=== PATIENT | female | born 1975 | race Caucasian/White ===

== ENCOUNTER 2019-12-04 13:54 | Outpatient (CLI) | payer OTHER, SELFPAY ==
--- NOTE | ~2019-12-04 | MM_ITS ---
EXAMINATION: MM screening [facility] BI w carla HISTORY: Screening mammogram TECHNIQUE: Craniocaudal and mediolateral oblique 3-D tomosynthesis images were obtained and synthetic 2-D images were generated. CAD analysis was submitted and interpreted. COMPARISON: 11/27/2018, 06/10/2017, 06/13/2016 BREAST PARENCHYMAL COMPOSITION: The breasts are heterogeneously dense, which may obscure small masses . FINDINGS: Again seen are multiple bilateral obscured breast masses with a waxing and waning appearanc e, consistent with cysts. Scattered benign-appearing calcifications are present. There is no evidence of suspicious mass, calcification, or architectural distortion to suggest malignancy in either breas t. There has been no suspicious interval change. IMPRESSION: 1. No mammographic evidence of malignancy. 2. Recommend routine screening mammography in one year. BI-RADS Category 2: Benign finding(s). Reviewed, dictated and finalized at location A.
== END 2019-12-04 13:55 | disposition home or self-care (01) ==
LOC: ANHIMG 14:02
PROVIDERS: Visit Provider Obstetrics & Gynecology
DX: Z12.31 Encounter for screening mammogram for malignant neoplasm of breast (principal)
CPT/HCPCS: 77063; 77067

== ENCOUNTER 2020-12-23 17:50 | Outpatient (CLI) | payer OTHER, SELFPAY ==
--- NOTE | ~2020-12-23 | MM_ITS ---
EXAMINATION: MM screening [facility] BI w carla HISTORY: Screening TECHNIQUE: Craniocaudal and mediolateral oblique 3-D tomosynthesis images were obtained and synthetic 2-D images were generated. CAD analysis was submitted and interpreted. COMPARISON: Comparison to multiple prior studies sequentially, with oldest reviewed study dated 12/03. BREAST PARENCHYMAL COMPOSITION: The breasts are heterogenously dense, which may obscure small masses. FINDINGS: There are multiple developing bilateral breast masses which are obscured by dense fibroglan dular tissue. There are scattered benign-appearing calcifications. No architectural distortion is rosangela ntified. IMPRESSION: 1. Developing bilateral breast masses, obscured by dense fibroglandular tissue. 2. Additional complete bilateral breast ultrasound is recommended. BI-RADS Category 0: Incomplete: Needs additional imaging evaluation. Reviewed, dictated and finalized at location A.
== END 2020-12-23 17:51 | disposition home or self-care (01) ==
LOC: ANHIMG 17:52
PROVIDERS: Visit Provider Obstetrics & Gynecology
DX: Z12.31 Encounter for screening mammogram for malignant neoplasm of breast (principal); R92.8 Other abnormal and inconclusive findings on diagnostic imaging of breast
CPT/HCPCS: 77063; 77067

== ENCOUNTER 2021-01-15 12:35 | Outpatient (CLI) | payer OTHER, SELFPAY ==
--- NOTE | ~2021-01-15 | US_ITS ---
EXAMINATION: US breast BI limited HISTORY: Bilateral breast masses on screening mammogram TECHNIQUE: Limited high-resolution ultrasound is performed in the upper outer quadrant of the breasts . FINDINGS: There are multiple similar appearing anechoic and hypoechoic masses in both breasts, consis tent with simple and complicated cysts. None demonstrate suspicious sonographic features. IMPRESSION: Multiple simple and complicated cysts of the breasts without suspicious sonographically detected mass . Routine screening mammography is recommended. BI-RADS Category 2: Benign finding(s). Reviewed, dictated and finalized at location A. IMPRESSION: Multiple simple and complicated cysts of the breasts without suspicious sonogra phically detected mass. Routine screening mammography is recommended. BI-RADS Category 2: Benign finding(s).
== END 2021-01-15 12:36 | disposition home or self-care (01) ==
LOC: ANHIMG 12:37
PROVIDERS: Visit Provider Obstetrics & Gynecology
DX: R92.8 Other abnormal and inconclusive findings on diagnostic imaging of breast (principal)
CPT/HCPCS: 76642

== ENCOUNTER 2022-01-01 15:39 | Outpatient (CLI) | payer OTHER, SELFPAY ==
--- NOTE | ~2022-01-01 | MM_ITS ---
EXAMINATION: MM screening [facility] BI w carla HISTORY: Screening mammogram TECHNIQUE: Craniocaudal and mediolateral oblique 3-D tomosynthesis images were obtained and synthetic 2-D images were generated. CAD analysis was submitted and interpreted. COMPARISON: 01/15/2021 bilateral Limited breast ultrasound 12/23/2020, 12/04/2019, 11/27/2018 bilateral screening mammogram examinations BREAST PARENCHYMAL COMPOSITION: The breasts are heterogeneously dense, which may obscure small masses . FINDINGS: Multiple breast masses and bilateral asymmetry; bilateral diagnostic mammography and bilate ral breast ultrasound examination are recommended. IMPRESSION: 1. Bilateral masses and asymmetries 2. Bilateral diagnostic ultrasound and breast ultrasound examination are recommended BI-RADS Category 0: Incomplete: Needs additional imaging evaluation. Reviewed, dictated and finalized at location A. IMPRESSION: 1. Bilateral masses and asymmetries 2. Bilateral diagnostic ultrasound and breast ultrasound examination are recomm ended BI-RADS Category 0: Incomplete: Needs additional imaging evaluation.
== END 2022-01-01 15:40 | disposition home or self-care (01) ==
LOC: ANHIMG 15:39
PROVIDERS: Visit Provider Obstetrics & Gynecology
DX: Z12.31 Encounter for screening mammogram for malignant neoplasm of breast (principal); R92.8 Other abnormal and inconclusive findings on diagnostic imaging of breast
CPT/HCPCS: 77063; 77067

== ENCOUNTER 2022-02-02 13:12 | Outpatient (CLI) | payer OTHER, SELFPAY ==
--- NOTE | ~2022-02-02 | MMUS_ITS ---
EXAMINATION: MM diagnostic [facility] BI w carla, US breast BI complete HISTORY: Bilateral breast masses and asymmetries reported on screening mammogram TECHNIQUE: Additional 3-D tomosynthesis images of both breasts were performed and synthetic 2-D image s were generated. CAD analysis was submitted and interpreted. High resolution complete bilateral miracle st ultrasound including all 4 quadrants and subareolar areas of each breast was performed. COMPARISON: 01/01/2022 bilateral screening mammogram 01/15/2021 bilateral Limited breast ultrasound examination, limited to upper outer quadrant of the christopher asts 12/23/2020, 12/04/2019 bilateral screening mammogram examinations FINDINGS: MAMMOGRAPHIC FINDINGS: There is evidence of bilateral breast masses, more numerous and larger on the right, measuring as muc h as 3 cm dimension. These are partially obscured by the heterogeneously dense fibroglandular stroma. Breast cysts are suspected. Bilateral complete breast ultrasound examination was performed. ULTRASOUND: Right breast: There are multiple right simple breast cysts, the largest measuring up to 3 cm, situate d at 8:00 5 cm from the nipple. No suspicious right breast mass or shadowing. Left breast: Scattered left breast cysts are noted, measuring up to approximately 9 mm maximal dimens ion at 2:00 1 cm from the nipple. No suspicious left breast mass or shadowing is noted. IMPRESSION: 1. Multiple bilateral breast cysts; no evidence of malignancy 2. Routine annual mammographic screening is recommended BI-RADS Category 2: Benign finding(s). Reviewed, dictated and finalized at location A. IMPRESSION: 1. Multiple bilateral breast cysts; no evidence of malignancy 2. Routine annual mammographic screening is recommended BI-RADS Category 2: Benign finding(s).
== END 2022-02-02 13:13 | disposition home or self-care (01) ==
PROVIDERS: Visit Provider Obstetrics & Gynecology
DX: R92.8 Other abnormal and inconclusive findings on diagnostic imaging of breast (principal); N60.11 Diffuse cystic mastopathy of right breast; N60.12 Diffuse cystic mastopathy of left breast
CPT/HCPCS: 76641; 77062; 77066; G0279

== ENCOUNTER 2023-03-16 14:37 | Outpatient (CLI) | payer OTHER, SELFPAY ==
--- NOTE | ~2023-03-16 | MM_ITS ---
EXAMINATION: MM screening [facility] BI w carla HISTORY: Screening mammogram TECHNIQUE: Craniocaudal and mediolateral oblique 3-D tomosynthesis images were obtained and synthetic 2-D images were generated. CAD analysis was submitted and interpreted. COMPARISON: 02/02/2022 bilateral diagnostic mammogram and bilateral complete breast ultrasound examina tion 01/01/2022 bilateral screening mammogram 01/15/2021 bilateral Limited breast ultrasound 12/23/2020, 12/04/2019 bilateral screening mammogram examinations BREAST PARENCHYMAL COMPOSITION: The breasts are heterogeneously dense, which may obscure small masses . FINDINGS: There is a 1.5 cm circumscribed mass with slightly lateral to mid sagittal plane in the david tral right breast. The margins appear circumscribed, with halo sign, suggesting benign lesion, most l ikely a cyst. 9 mm circumscribed mass is noted in the anterior mid outer left breast. Additional masses suggested but are obscured by the heterogeneously dense stroma. Bilateral diagnostic mammography and breast ultrasound examination are recommended. IMPRESSION: 1. Bilateral breast masses 2. Bilateral diagnostic mammography and breast ultrasound examination are recommended BI-RADS Category 0: Incomplete: Needs additional imaging evaluation. Reviewed, dictated and finalized at location A. IMPRESSION: 1. Bilateral breast masses 2. Bilateral diagnostic mammography and breast ultrasound examination are recom mended BI-RADS Category 0: Incomplete: Needs additional imaging evaluation.
== END 2023-03-16 14:38 | disposition home or self-care (01) ==
LOC: ANHIMG 14:39
PROVIDERS: Visit Provider Obstetrics & Gynecology
DX: Z12.31 Encounter for screening mammogram for malignant neoplasm of breast (principal); R92.8 Other abnormal and inconclusive findings on diagnostic imaging of breast
CPT/HCPCS: 77063; 77067

== ENCOUNTER 2023-04-13 12:05 | Outpatient (CLI) | payer OTHER, SELFPAY ==
--- NOTE | ~2023-04-13 | MMUS_ITS ---
EXAMINATION: MM diagnostic [facility] BI w carla, US breast BI complete HISTORY: Bilateral breast masses reported on 03/16/2023 screening mammogram TECHNIQUE: Additional 3-D tomosynthesis images of both breasts were performed and synthetic 2-D image s were generated. CAD analysis was submitted and interpreted. High resolution complete bilateral miracle st ultrasound examination including all 4 quadrants and subareolar area of each breast was performed. COMPARISON: 03/16/2023 bilateral screening mammogram FINDINGS: MAMMOGRAPHIC FINDINGS: Occasional bilateral obscured masses are suggested. Heterogeneously dense stroma may obscure masses. Bilateral complete ultrasound examination was performed better clarification. ULTRASOUND: There are scattered bilateral circumscribed benign appearing sonolucent and hypoechoic lesions, likel y cysts and complicated cysts. No suspicious mass or suspicious shadowing is evident. The largest on the right is situated at 9:00 5 cm from nipple, measuring 14 x 7 x 16 mm. The largest on the left is situated at 12:00 3 cm from the nipple, measuring up to 6.1 x 6.7 mm. No suspicious mass or shadowing of either breast is detected. IMPRESSION: 1. Benign findings 2. Routine annual mammographic screening is recommended BI-RADS Category 2: Benign finding(s). Reviewed, dictated and finalized at location A. RENCE INVESTIGATOR IMPRESSION: 1. Benign findings 2. Routine annual mammographic screening is recommended BI-RADS Category 2: Benign finding(s).
== END 2023-04-13 12:06 | disposition home or self-care (01) ==
LOC: ANHIMG 12:07
PROVIDERS: Visit Provider Obstetrics & Gynecology
DX: R92.8 Other abnormal and inconclusive findings on diagnostic imaging of breast (principal)
CPT/HCPCS: 76641; 77062; 77066; G0279

== ENCOUNTER 2024-07-09 15:37 | Outpatient (CLI) | payer OTHER, SELFPAY ==
--- NOTE | ~2024-07-09 | MM_ITS ---
EXAMINATION: MM screening [facility] BI w carla HISTORY: Screening TECHNIQUE: Craniocaudal and mediolateral oblique 3-D tomosynthesis images were obtained and synthetic 2-D images were generated. CAD analysis was submitted and interpreted. COMPARISON: Comparison to multiple prior studies sequentially, with oldest reviewed study dated 12/03. BREAST PARENCHYMAL COMPOSITION: Dense: The breasts are heterogeneously dense, which may obscure small masses FINDINGS: There is no evidence of suspicious mass, calcification, or architectural distortion to sugg est malignancy in either breast. There has been no suspicious interval change. IMPRESSION: 1. No mammographic evidence of malignancy. 2. Recommend routine screening mammography in one year. BI-RADS Category 1: Negative Reviewed, dictated and finalized at location B. DENTIAL PROPERTY CONSULTANT
== END 2024-07-09 15:38 | disposition home or self-care (01) ==
PROVIDERS: Visit Provider Obstetrics & Gynecology
DX: Z12.31 Encounter for screening mammogram for malignant neoplasm of breast (principal)
CPT/HCPCS: 77063; 77067